=== PATIENT | female | born 1985 | race Caucasian/White ===

== ENCOUNTER 2018-12-05 19:50 | Inpatient (IN) | payer MEDICAID ==
[2018-12-05] MEDS ORDERED: LACTATED RINGER'S 1,000 ML IV (20:51)
[2018-12-05] MEDS ORDERED: OXYTOCIN 30 UNITS/LR 500 ML IV ×2 (21:00)
[2018-12-05] MEDS ORDERED: LIDOCAINE 1% (MPF) 30 ML INJ INJ (21:00)
[2018-12-05 21:31] LABS: INR 0.98; PROTIME 13.1 Sec (11.9-14.9)
[2018-12-05 21:32] LABS: PARTIAL THROMBOPLASTIN TIME 27.6 Sec (23.0-35.0)
[2018-12-05 21:51] LABS: ADD MAN DIFF? NO
[2018-12-05 21:53] LABS: WHITE BLOOD COUNT 9.2 10^3/ul (4.8-10.8)
[2018-12-05 21:53] LABS: BASOPHILS % 0.1 % (0.0-2.0); EOSINOPHILS # 0.1 10^3/ul (0.0-0.5); EOSINOPHILS % 0.5 % (0.0-7.0); HEMATOCRIT 35.5 % (37.0-47.0); HEMOGLOBIN 12.1 g/dl (12.0-16.0); LYMPHOCYTES % 21.8 % (15.0-51.0); MEAN CORPUSCULAR HEMOGLOBIN 31.6 pg (29.0-33.0); MEAN CORPUSCULAR HGB CONC 34.1 g/dl (32.0-37.0); MEAN CORPUSCULAR VOLUME 92.7 fl (82.0-101.0); MEAN PLATELET VOLUME 11.8 fl (7.4-10.4); MONOCYTE # 0.6 10^3/ul (0.3-0.9); MONOCYTES % 6.2 % (0.0-11.0); NEUTROPHIL # 6.5 10^3/ul (1.6-7.5); NEUTROPHILS % 71.1 % (39.0-77.0); PLATELET COUNT 152 10^3/UL (140-415); RED BLOOD COUNT 3.83 10^6/ul (4.20-5.40); RED CELL DISTRIBUTION WIDTH 12.7 % (11.5-14.5)
[2018-12-05] MEDS: LACTATED RINGER'S 1,000 ML IV (22:16)
[2018-12-06] MEDS ORDERED: FENTAnyl 2MCG/ML-ROPIV 0.2% 100 ML (03:05)
[2018-12-06] MEDS: LACTATED RINGER'S 1,000 ML IV ×3 (03:10→11:56)
[2018-12-06] MEDS ORDERED: ONDANSETRON 4 MG INJ IV (03:30)
[2018-12-06] MEDS ORDERED: NALOXONE (0.4 MG/ML) INJ IV (03:30)
[2018-12-06] MEDS ORDERED: DIPHENHYDRAMINE 50 MG INJ IV (03:30)
[2018-12-06] MEDS: OXYTOCIN 30 UNITS/LR 500 ML IV ×3 (10:32→18:05)
[2018-12-06] MEDS: FENTAnyl 2MCG/ML-ROPIV 0.2% 100 ML BAG EPI (11:51)
[2018-12-06 15:45] LABS: RAPID PLASMA REAGIN NONREACTIVE (NR)
[2018-12-06] MEDS: METHYLERGONOVINE 0.2 MG INJ IM (16:33)
[2018-12-06] MEDS: MISOPROSTOL 200 MCG TAB PR (16:48)
[2018-12-06] MEDS: CARBOPROST 250 MCG INJ IM (16:49)
[2018-12-06] MEDS: CEFAZOLIN 2 GM/50 ML (PMX) 50 ML IVPB (16:54)
[2018-12-06] MEDS ORDERED: METHYLERGONOVINE 0.2 MG INJ IM (19:00)
[2018-12-06] MEDS ORDERED: MISOPROSTOL 200 MCG TAB PR (19:00)
[2018-12-06] MEDS ORDERED: CARBOPROST 250 MCG INJ IM (19:00)
[2018-12-06] MEDS ORDERED: DIBUCAINE 1% 30 GM OINT TOP (19:00)
[2018-12-06] MEDS ORDERED: ACETAMINOPHEN 325 MG TAB PO (19:00)
[2018-12-06] MEDS ORDERED: OXYTOCIN 30 UNITS/LR 500 ML IV (19:00)
[2018-12-06] MEDS: IBUPROFEN 600 MG TAB PO ×2 (19:24→23:37)
[2018-12-06] MEDS: SENNA/DOCUSATE NA (8.6MG/50MG) TAB PO (21:00)
[2018-12-06] MEDS: LACTATED RINGER'S 1,000 ML IV* (21:48)
[2018-12-07] MEDS: WITCH HAZEL/GLYCERIN PAD PR (02:48)
[2018-12-07] MEDS: HYDROCODONE/APAP (5/325) TAB PO ×2 (02:48→21:56)
[2018-12-07] MEDS: BENZOCAINE 20% 56 ML SPRAY TOP (02:48)
[2018-12-07] MEDS: IBUPROFEN 600 MG TAB PO ×3 (05:32→18:38)
[2018-12-07 08:01] LABS: ADD MAN DIFF? NO
[2018-12-07 08:06] LABS: BASOPHILS % 0.2 % (0.0-2.0); EOSINOPHILS # 0.1 10^3/ul (0.0-0.5); EOSINOPHILS % 0.5 % (0.0-7.0); HEMOGLOBIN 10.8 g/dl (12.0-16.0); LYMPHOCYTES # 1.8 10^3/ul (0.8-2.9); LYMPHOCYTES % 14.3 % (15.0-51.0); MEAN CORPUSCULAR HEMOGLOBIN 31.7 pg (29.0-33.0); MEAN CORPUSCULAR HGB CONC 33.8 g/dl (32.0-37.0); MEAN CORPUSCULAR VOLUME 93.8 fl (82.0-101.0); MEAN PLATELET VOLUME 11.9 fl (7.4-10.4); MONOCYTE # 0.8 10^3/ul (0.3-0.9); MONOCYTES % 6.6 % (0.0-11.0); NEUTROPHIL # 9.8 10^3/ul (1.6-7.5); PLATELET COUNT 144 10^3/UL (140-415); RED BLOOD COUNT 3.41 10^6/ul (4.20-5.40); RED CELL DISTRIBUTION WIDTH 12.7 % (11.5-14.5)
[2018-12-07 08:06] LABS: WHITE BLOOD COUNT 12.5 10^3/ul (4.8-10.8)
[2018-12-07] MEDS: SENNA/DOCUSATE NA (8.6MG/50MG) TAB PO ×2 (09:00→21:00)
[2018-12-07] MEDS: DIPHTH/TET/ACEL PERTUSS (ADULT) 0.5 ML VIAL IM* (10:00)
[2018-12-07] MEDS ORDERED: LANOLIN HPA 1 PKT TOP (10:00)
[2018-12-08] MEDS: IBUPROFEN 600 MG TAB PO ×3 (00:23→12:00)
[2018-12-08] MEDS: SENNA/DOCUSATE NA (8.6MG/50MG) TAB PO (09:00)
== END 2018-12-08 14:50 | disposition home or self-care (01) | DRG 768 ==
LOC: L-D 19:50 → PP1 12-06 18:23
PROC: 10E0XZZ Delivery of Products of Conception, External Approach (ICD-10-PCS; principal; 2018-12-06)
PROC: 0UDB7ZZ Extraction of Endometrium, Via Natural or Artificial Opening (ICD-10-PCS; 2018-12-06)
PROC: 0KQM0ZZ Repair Perineum Muscle, Open Approach (ICD-10-PCS; 2018-12-06)
DX: O62.2 Other uterine inertia (principal); Z37.0 Single live birth; O69.81X0 Labor and delivery complicated by cord around neck, without compression, not applicable or unspecified; O70.1 Second degree perineal laceration during delivery; Z3A.40 40 weeks gestation of pregnancy
CPT/HCPCS: 76815; 85025; 85610; 85730; 86592; 86850; 86900; 86901